=== PATIENT | male | born 1990 | race Caucasian/White ===

== ENCOUNTER → 2020-01-25 12:42 | Outpatient (BNVA) | payer SELFPAY | PROVIDERS: Visit Provider Specialist | DX: G56.22 Lesion of ulnar nerve, left upper limb (principal) | CPT/HCPCS: 95908 ==

== ENCOUNTER → 2020-02-13 12:13 | Outpatient (BNVA) | payer SELFPAY | PROVIDERS: Referring Provider Nurse Practitioner Family; Visit Provider Orthopaedic Surgery | DX: G56.22 Lesion of ulnar nerve, left upper limb (principal) | CPT/HCPCS: 73080 ==

== ENCOUNTER 2020-02-21 06:46 | Day surgery (SDC) | payer SELFPAY ==
[2020-02-20 17:28] VITALS: BMI 23.8
[2020-02-21] VITALS (12 sets, daily range): BP systolic 100–125; BP diastolic 62–89; PULSE 60–84; RESP 16–20; TEMP 36.1–36.6; O2SAT 98–100
--- NOTE | 2020-02-21 06:59 | W.PM.OPSUD ---
Surgery/Procedure H&P Update DATE OF PROCEDURE: February 21, 2020 DATE H&P PERFORMED: 02/13/20 PREOP DIAGNOSIS: Unstable left ulnar nerve PLANNED PROCEDURE: Operation Date: 02/21/20 08:15 Proposed Procedures p Ulna Nerve Decompression/[id number] G56.22(Left) - Moe Zhao MD
[2020-02-21] MEDS: sodium chloride 0.9% 1,000 ML 30 ML IV (07:06)
[2020-02-21 07:31] LABS: Coronavirus Lab Test PTC NOT DETECTED
--- NOTE | 2020-02-21 08:16 | P.ANESASSM_ITS ---
Pre-Anesthetic Assessment Pre-Anesthetic Assessment: Height/Weight: Height 1.68 m Weight 67.132 kg Temp Pulse Resp BP Pulse Ox 97.9 F 72 18 100/62 100 02/21/20 06:57 02/21/20 06:57 02/21/20 06:57 02/21/20 06:57 02/21/20 06:57 Preop Diagnosis: Unstable left ulnar nerve Proposed Procedure: Operation Date: 02/21/20 08:15 Proposed Procedures p Ulna Nerve Decompression/00984 G56.22(Left) - Moe Zhao MD Familial anesthetic complications: None Was Beta Kishore taken within 24 darren rs: N/A Last intake: Intake Last Liquid Date 02/20/20 Last Liquid Time 21:00 Last Solid Date 02/20/20 Last Solid Time 21:00 Social: Social History: No alcohol and No tobacco Exam: Pre-Anes Outpt Exam: alert, oriented x 3, clear to auscultation bilaterally and regular rate & rhythm Airway: Cervical ROM: WNL MP: 2 Dentition: Full Pulmonary: Pulmonary: None reported CV/HEM: CV/HEM: None reported : : None reported Hepatic: Hepatic: None reported GI: GI: None reported Metabolic: Metabolic: None reported Musc/skel: Musc/skel: None reported Neuropsych: Neuropsych: Neuropathy Anesthetic Plan: ASA status: 1 Anesthesia: MAC Risk of > 500 ml blood loss (7ml/kg in children): No Meds/Allergies Current Medications: Current Medications Generic Name Dose Route Start Last Admin Trade Name Freq PRN Reason Stop Dose Admin Sodium Chloride 1,000 mls @ 30 ml s/hr 02/21/20 06:30 02/21/20 07:06 Sodium Chloride 0.9% IV 02/22/20 06:29 30 mls/hr .Q24H SANDRA Administration Data Anesthesia Other Labs: Laboratory Results - last 48 hr 02/19/20 14:31 Nasal/Oral COVID-19 PCR Not detected Cardiac Studies: No Data to Display
--- NOTE | 2020-02-21 09:53 | P.OP_ITS ---
Operative Report Date of procedure: February 21, 2020 Pre-op Diagnosis: Subluxing left ulnar nerve Post-op diagnosis: same Post-op Findings: Same Procedure Done: Left ulnar nerve transposition Implants: None Specimens removed/disposition: None Pathology: none sent Anesthesia: General Estimated blood loss (mL): 20 Tourniquet time (min): 19 Complications: None Findings: Patient had a unstable ulnar nerve behind the medial epicondyle which with flexion of the elbow with subluxate anteriorly. No masses or space- occupying lesions were seen about the ulnar nerve Condition: stable Disposition: PACU Procedure: The patient was taken to the operating room and given a general anesthesia. A tourniquet was inflated to 225 mmHg. A timeout was performed. A 5 cm long incision was made behind the medial epicondyle. Dissection was accomplished bluntly under loupe magnification identifying the ulnar nerve proximally. Utilizing a hemostat the fascia over the nerve was elevated and incised proximally. Dissection was then carried distally behind the medial epicondyle and into the flexor carpi ulnaris musculature. Dissection was stopped with the first muscular branches identified. Next using a scalpel blad e a 1 cm long section of medial intermuscular septum was removed to prevent this from impinging on the nerve after transposition. Medially based fascial flap was then contoured elevating the fascia over the flexor pronator musculature leaving a base attached at the medial epicondyle. The nerve was then placed in to this muscular floor sling of tissue in the tissues approximated to the anterior subcutaneous fascia. Elbow was brought through range of motion and nerve found to move freely and is transposed position. Hemostasis was accomplished with bipolar cautery. Wounds were irrigated with saline. Deep tissues were closed with 2-0 Vicryl. Subcutaneous is closed with 3-0 Vicryl. The skin was closed with a running 3-0 Prolene. Steri-Strips were applied. Xeroform gauze, 4 x 4's, compressive labral, and Kartik wrap, and a sling were applied. The patient was taken recovery room in stable condition.
--- NOTE | 2020-02-21 10:01 | SUR.PHASEI ---
pt continues to sleep with oral airway in place, lt arm in sling with soft dressing d/i distal fingers pink warm with cap refill less than 3 seconds.
[2020-02-21] MEDS: fentaNYL 50 mcg/mL INJ 2mL IVP (10:07)
[2020-02-21] MEDS: morphine 4 mg/mL SDV 1 mL 2 MG IVP (10:12)
--- NOTE | 2020-02-21 10:26 | SUR.PHASEI ---
PT AWAKE ALERT TALKATIVE WANTS SPRITE TO SIP ON DR BRAN AT BEDSIDE GIVING PT UPDATE ON SURGERY PT ALERT AND ASKING PERTINENT QUESTIONS MOVES FINGERS TO COMMAND PT TO OPS.
[2020-02-21] MEDS: HYDROcodone-acetaminophen 5-325 mg Tablet 1 TAB PO (10:39)
== END 2020-02-21 11:19 | disposition home or self-care (01) ==
PROVIDERS: PCP Nurse Practitioner Family; Visit Provider Orthopaedic Surgery
PROC: (CPT 64718; principal; 2020-02-21 08:15)
DX: G56.22 Lesion of ulnar nerve, left upper limb (principal)
CPT/HCPCS: 64718; 12345; 87635; J0690; J2270; J2704; J3010; J3490; J7030

== ENCOUNTER 2020-04-03 17:39 | Emergency (ER) | payer SELFPAY ==
[2020-04-03 17:49] VITALS: BP 112/83; PULSE 88; RESP 18; TEMP 36.4; O2SAT 98; BMI 24.2
--- NOTE | 2020-04-03 17:50 | XR_ITS ---
WS: [id number] Left hand, 3 views, 04/03/2020 Clinical Data: injury Comparison: Left hand, 12/13/2017. Findings: No fractures or dislocations are seen. The soft tissues are unremarkable. The joint spaces are normal There is a small radiopaque foreign body adjacent to the ungual tuft of the distal phalanx of the rehan mb unchanged. XR/XR hand LT min 3V* [id number] Impression: Negative left hand.
--- NOTE | 2020-04-03 17:50 | W.ED.ANIMALB ---
HPI - Animal Bite General: Chief Complaint: Animal Bite Stated Complaint: dog bite Time Seen by Provider: 04/03/20 17:48 Source: patient Mode of arrival: ambulatory Limitations: no limitations History of Present Illness: HPI narrative: 29-year-old male states his dogs were fighting to break it up and 1 but he made the left hand. He has multiple puncture wounds with no lacerations. States he has pain in the hand he rates a 4 out of 10. He states he is up-to-date on his tetanus. Denies any other injuries. Associated symptoms: Deny chills, fever(s) or headache(s) Review of Systems Const: Denies: fever(s), chills, body aches or change in appetite Eyes: Denies: blurry vision or eye discomfort ENMT: Denies: throat pain or dental pain Card: Denies: chest pain Resp: Denies: dyspnea GI: Denies: abdominal pain, nausea, vomiting or diarrhea : Denies: dysuria Musc: Denies: neck pain or back pain Skin/Breast: Denies: rash Neuro: Denies: headache(s) Psych: Denies: depression Makrie/Lymph: Denies: easy bruising All/Imm: Denies: urticaria Physical Exam Const: COMMON NORMALS: no acute distress, patient oriented x3 and healthy appearing HENMT: COMMON NORMALS: normocephalic and atraumatic HEAD & SCALP: normocephalic and atraumatic Eye: COMMON NORMALS: Equal, round and reactive pupils present and EOMs intact bilaterally PUPIL: Yes Equal, round and reactive pupils present Neck/C-Spine: COMMON NORMALS: full ROM and supple Chest: COMMONS NORMALS: normal inspection of the chest and normal palpation of entire chest wall Resp: COMMON NORMALS: normal respiratory effort, No retractions, No use of accessory muscles and clear to auscultation bilaterally AUSCULTATION: clear to auscultation bilaterally Cardio: COMMON NORMALS: regular rate, regular rhythm and No murmurs present (Cardio) RATE: regular rate RHYTHM: regular rhythm GI: COMMON NORMALS: Normal to inspection, nondistended, normoactive bowel sounds present, Soft to palpation, non-tender and no masses PALPATION: Yes Soft to palpation Extremity: COMMON NORMALS: normal to inspection and full ROM Neuro: COMMON NORMALS: patient oriented x3, moves all extremities and no focal motor deficits Psych: COMMON NORMALS: mental status grossly normal, Normal thought process present and cooperative THOUGHT PROCESS: Normal thought process present Skin: COMMON NORMALS: no rashes or lesions noted NARRATIVE SKIN EXAM: Multiple puncture wounds to left hand with no laceration. GENERAL SKIN EXAM: no rashes or lesions noted Course Vital Signs: Vital signs: Vital Signs Temperature 97.6 F 04/03/20 17:49 Pulse Rate 88 04/03/20 17:49 Respiratory Rate 18 04/03/20 17:49 Blood Pressure 112/83 04/03/20 17:49 Pulse Oximetry 98 04/03/20 17:49 MDM - Animal Bite MDM Narrative: Medical decision making narrative: Patient presents here with dog bite. He has no signs of broken bones and has no lacerations need repaired. We will place him on Augmentin he is to watch her infection and is stable for discharge. Imaging Data^: xr hand: Radiologist's impression: no acute abnormality Discharge Plan Discharge Patient Disposition: Home Clinical Impression: Dog bite Qualifiers: Encounter type: initial encounter Qualified Code(s): W54.0XXA - Bitten by dog, initial encounter Condition: Stable Prescriptions: New Naprosyn 500 mg tablet 500 mg PO BID PRN (Reason: pain) Qty: 20 RF: 0 Augmentin 875-125 mg tablet 1 tab PO BID Qty: 14 RF: 0 No Action cyclobenzaprine 10 mg tablet 10 mg PO TID PRN (Reason: Muscle Spasm) RF: 0 naproxen 500 mg tablet 500 mg PO DAILY RF: 0 Discharge Orders: Discharge Order (Routine); Ordered 04/03/20 Ordered By: Goldie Bernstein Referrals: Ceci Lee ARNP [Primary Care Provider] - 1-3 days Discharge Diet: Advance as tolerated Discharge Activity: Resume usual activity Patient Instructions: Animal Bite (ED) Coding Level of Care Code ED 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
[2020-04-03] MEDS: HYDROcodone-acetaminophen 7.5-325 mg Tablet 1 TAB PO (18:07)
[2020-04-03 18:11] VITALS: BP 119/83; PULSE 80; RESP 14; O2SAT 96
== END 2020-04-03 18:12 | disposition home or self-care (01) ==
PROVIDERS: Emergency Provider Emergency Medicine; PCP Nurse Practitioner Family
DX: S61.452A Open bite of left hand, initial encounter (principal); W54.0XXA Bitten by dog, initial encounter
CPT/HCPCS: 12345; 73130; 99281; 99283

== ENCOUNTER 2021-06-13 11:51 | Emergency (ER) | payer OTHER, SELFPAY ==
[2021-06-13 12:44] VITALS: BP 109/80; PULSE 76; RESP 18; TEMP 36.8; O2SAT 99; BMI 22.8
--- NOTE | 2021-06-13 14:15 | ED_ITS ---
HPI - Burn/Smoke Inhalation General: Chief complaint: Burn/Smoke Inhalation Stated complaint: Chemical Exposure, Bleach & UpShot Time Seen by Provider: 06/13/21 14:00 History of Present Illness: HPI Narrative: Patient is a 31-year-old male who comes to the ED after chemical exposure. 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 Says his partner he is working with was sprain kills upshot and bleach to help with mold in the bathroom. Patient said after inhaling that for few minutes he started to feel little dizzy and nauseous. Denies any respiratory complaints such as cough, shortness of breath or wheezing. Patient says yesterday he felt really dizzy after work and is sort of a mental fog. Today his symptoms have improved but his employer wanted him to get checked out. Associated symptoms: Reports nausea; Deny chest pain, fever(s), headache(s), neck pain or vomiting Review of Systems Const: Denies: fever(s), chills or fatigue Eyes: Denies: change in vision or eye discomfort ENMT: Denies: throat pain, odynophagia, nasal discharge or nasal congestion Card: Denies: chest pain, palpitations, edema, swelling of feet/ankles, dyspnea on exertion or orthopnea Resp: Denies: dyspnea, productive cough or non-productive cough GI: Reports: nausea; Denies: abdominal pain, vomiting, diarrhea, constipation or hematochezia : Denies: flank pain, difficulty urinating, dysuria or hematuria Musc: Denies: neck pain, back pain or extremity swelling Skin/Breast: Denies: rash or new lesions Neuro: Reports: dizziness and confusion (mental cloudiness); Denies: headache(s), numbness in extremities or weakness in extremities Physical Exam Const: COMMON NORMALS: no acute distress, patient oriented x3, healthy appearing and alert GENERAL APPEARANCE: cooperative and comfortable HENMT: COMMON NORMALS: normocephalic HEAD & SCALP: normocephalic MOUTH: Normal oral and palatal mucosa present THROAT: posterior oropharynx normal and uvula midline Neck/C-Spine: COMMON NORMALS: supple GENERAL: Yes normal visual inspection Resp: COMMON NORMALS: normal respiratory effort, No retractions, No use of accessory muscles and clear to auscultation bilaterally EFFORT & INSPECTION: Yes able to speak in complete sentences, No tachypneic, No respiratory distress and No labored AUSCULTATION: clear to auscultation bilaterally and no wheezes Cardio: COMMON NORMALS: regular rate, regular rhythm, S1 normal heart sound present, S2 normal heart sound present, No gallops present (Cardio), No clicks present (Cardio), No murmurs present (Cardio) and Peripheral pulses 2+ throughout RATE: regular rate RHYTHM: regular rhythm HEART SOUNDS: S1 normal heart sound present and S2 normal heart sound present PERIPHERAL PULSES: Peripheral pulses 2+ throughout GI: COMMON NORMALS: Normal to inspection, nondistended, normoactive bowel sounds present, Soft to palpation, non-tender and no masses PALPATION: Yes Soft to palpation : COMMON NORMALS: Yes no CVA tenderness BLADDER/KIDNEY EXAM: Yes no CVA tenderness Back/Pelvis: COMMON NORMALS: no CVA tenderness Extremity: COMMON NORMALS: normal to inspection Neuro: COMMON NORMALS: patient oriented x3, CN's II-XII intact bilaterally, moves all extremities, no focal motor deficits and no sensory deficits noted SENSORIUM/ORIENTATION: Yes alert SENSORY EXAM: Yes extremities (intact) MOTOR EXAM: 5/5 motor strength present throughout Skin: GENERAL SKIN EXAM: dry skin Course ED course: I was researching Kilz Upshot spray and listed as one of the side effects for inhalation as dizziness. Another potential side effect for excessive inhalation is respiratory symptoms such as cough, wheezing. Patient has no respiratory complaints since exposure. Vital Signs: Vital signs: Vital Signs Temperature 97.8 F 06/13/21 14:56 Pulse Rate 78 06/13/21 14:56 Respiratory Rate 16 06/13/21 14:56 Blood Pressure 112/84 06/13/21 14:56 Pulse Oximetry 100 06/13/21 14:56 MDM - Burn/Smoke Inhalation MDM Narrative: Medical decision making narrative: Patient is a 31-year-old male comes to the ED after having a chemical exposure at work. Patient was working in the bathroom and his partner was spraying some bleach and Kilz Upshot on some of the rocha of the bathroom to help with the mold. Patient says after being in the bathroom he started feeling a little dizzy, nauseous and having some mental fog. Exposure occurred yesterday and today he said his symptoms are a lot better than yesterday. Denies any respiratory complaints such as coughing, wheezing and shortness of breath. Vitals stable. Exam is benign. Neuro exam showed no deficits. When researching the Janee Upshot, the product did state that inhalation can cause some dizziness. And noted that in more severe inhalation cases patient will have respiratory symptoms. Patient appears stable for discharge and I told patient to follow-up with his PCP in about a week for reevaluation. I told patient that he will probably continue to have improving symptoms over the next 48 hours. He was given return to ED instructions. Discharged home with a prescription for meclizine as needed for any dizziness. Patient understood and agreed with plan. Discharge Plan Discharge Patient Disposition: Home Clinical Impression: Exposure to chemical inhalation Condition: Stable Prescriptions: New meclizine 25 mg tablet 12.5 mg PO BID PRN (Reason: dizziness) Qty: 20 RF: 0 No Action cyclobenzaprine 10 mg tablet 10 mg PO TID PRN (Reason: Muscle Spasm) RF: 0 naproxen 500 mg tablet 500 mg PO DAILY RF: 0 Naprosyn 500 mg tablet 500 mg PO BID PRN (Reason: pain) Qty: 20 RF: 0 Augmentin 875-125 mg tablet 1 tab PO BID Qty: 14 RF: 0 Discharge Orders: Discharge ED (Routine); Ordered 06/13/21 Ordered By: Jose Sharma Referrals: Ceci Lee ARNP [Primary Care Provider] - Discharge Diet: Regular Discharge Activity: Resume usual activity Patient Instructions: Chemical Inhalation Activity Restrictions/Additional Instructions: Follow-up with medical provider as directed in 5 to 7 days reevaluation. Take medications as prescribed. Return to the ER or your medical provider if condition worsens. Please read and understand discharge instructions. Thank you for choosing [facility] for your healthcare needs today. Please realize this is an emergency room and that we are providing you with a medical screening exam and this may not be complete and all inclusive of all the testing and or work up that you may need to determine your ailment or severity of your illness. It is very important that you follow up as instructed or that you return to the Emergency Department should you have concerns or if your condition changes or worsens in any way. 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
[2021-06-13 14:39] VITALS: RESP 16
[2021-06-13 14:56] VITALS: BP 112/84; PULSE 78; RESP 16; TEMP 36.6; O2SAT 100
== END 2021-06-13 14:58 | disposition home or self-care (01) ==
PROVIDERS: Emergency Provider Physician Assistant; PCP Nurse Practitioner Family
DX: Z77.098 Contact with and (suspected) exposure to other hazardous, chiefly nonmedicinal, chemicals (principal)
CPT/HCPCS: 99281

== ENCOUNTER → 2021-07-30 15:28 | Outpatient (BNVA) | payer OTHER, SELFPAY | PROVIDERS: PCP Nurse Practitioner Family; Visit Provider Orthopaedic Surgery | DX: Z48.89 Encounter for other specified surgical aftercare (principal); M25.522 Pain in left elbow | CPT/HCPCS: 73080 ==

== ENCOUNTER → 2021-12-03 13:20 | Outpatient (BNVA) | payer OTHER, SELFPAY | PROVIDERS: PCP Nurse Practitioner Family; Visit Provider Nurse Practitioner Family | DX: Z02.1 Encounter for pre-employment examination (principal) | CPT/HCPCS: 80307 ==